=== PATIENT | female | born 1975 | race Caucasian/White ===

== ENCOUNTER 2023-06-22 18:28 | Emergency (ER) | payer BC ==
--- NOTE | 2023-06-22 18:57 | ED Physician Documentation ---
History of Present Illness - Stated complaint Stated Complaint: SEIZURE - Chief complaint Chief Complaint: General - Additonal information Additional information: 48-year-old female with history of alcohol dependence presents emergency depart ment for concerns of friends for seizure-like activity. Patient does report that she has a history of alcohol withdrawal seizures and says that what she is experienced in the car ride over was not alcohol withdrawal seizures. Patient said after she would take a puff of her vape her friends would say that she would lose consciousness her eyes would roll in the back of her head and she would have jerking-like motion and only her hands where she would get really tense. Patient had no postictal state she right now appears to be under the influence of alcohol. Patient says that she is under the influence of alcohol and drinks about 1/5 of vodka a day and has been drinking all day today. PD PAST MEDICAL HISTORY - Past Medical History Past Medical History: Yes Neuro: Seizure disorder, Other - Past Surgical History Past Surgical History: No - Allergies Allergies/Adverse Reactions: Allergies Allergy/AdvReac Type Severity Reaction Status Date / Time No Known Drug Allergies Allergy Verified 06/22/23 18:37 - Social History Does the pt smoke?: No Smoking Status: Never smoker PD ED PE NORMAL - Vitals Vital signs reviewed: Yes - General General: Alert and oriented X 3, No acute distress, Well developed/nourished - HEENT HEENT: Atraumatic, PERRL, EOMI, Ears normal, Moist mucous membranes - Cardiac Cardiac: RRR - Respiratory Respiratory: No respiratory distress, Clear bilaterally - Abdomen Abdomen: Normal bowel sounds - Derm Derm: Normal color, Warm and dry, No rash - Neuro Neuro: Alert and oriented X 3, 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, No motor deficit, No sensory deficit, Normal speech - Psych Psych: Other (Flat affect, appears under the intoxication of alcohol) Results - Vitals Vitals: Vital Signs - 24 hr 06/22/23 06/22/23 06/22/23 18:34 18:37 19:07 Temperature 36.3 C L 36.5 C Heart Rate 70 70 71 Respiratory 22 22 16 Rate Blood Pressure 100/73 100/73 141/110 H O2 Saturation 93 93 96 Oxygen O2 Source Room air - Labs Labs: Laboratory Tests 06/22/23 06/22/23 18:54 18:54 WBC 4.7 L RBC 3.95 L Hgb 12.3 Hct 37.6 MCV 95.2 MCH 31.1 H MCHC 32.7 RDW 12.2 Plt Count 208 MPV 10.6 Neut # (Auto) 2.5 Lymph # (Auto) 1.9 [place] # (Auto) 0.3 Eos # (Auto) 0.1 Baso # (Auto) 0.0 Absolute Nucleated RBC 0.00 Nucleated RBC % 0.0 Sodium 142 Potassium 3.7 Chloride 106 Carbon Dioxide 29 Anion Gap 7.0 BUN 16 Creatinine 0.6 Estimated GFR (MDRD) 106 Glucose 103 Calcium 9.3 Magnesium 1.8 Total Bilirubin 0.2 AST 18 ALT 10 Alkaline Phosphatase 79 Total Protein 6.5 Albumin 4.5 Globulin 2.0 L Albumin/Globulin Ratio 2.3 H Lipase 19 Ethyl Alcohol 332.5 PD Medical Decision Making - ED course ED course: 48-year-old female presents emergency department for concerns of her friends for seizure-like activity in the vehicle x 2. Patient was monitored here in the emergency department for over an hour and a half and I have not witnessed any of these seizure-like activity at that visit the patient's friends were describing. Her labs are complete and her EtOH level is quite elevated at 332 further confirming that patient was not having any alcohol withdrawal seizure activity. Patient does appear to be quite intoxicated she has no hypertension no tachycardia. I believe that patient is safe for discharge at this point in time back to [facility], she is medically cleared labs are complete which were unremarkable there is no further workup indicated at this point in time. Not sure with these episodes that the patient was having but I have not witnessed any of these episodes here in the emergency department. Patient is awake and alert hemodynamically stable. They were taught what alcohol withdrawal seizures look like and told when to report back to the emergency department. Departure - Departure Disposition: 01 Home, Self Care Clinical Impression: EtOH dependence Qualifiers: Substance use status: with intoxication Complication of substance-induced condition: uncomplicated Qualified Code(s): F10.220 - Alcohol dependence with intoxication, uncomplicated Instructions: ED Withdrawal Alcohol Comments: Thank you for trusting us with your care. We have checked your labs and they are unremarkable and your EtOH level is 332 given that I am confident that you are not experiencing any alcohol withdrawal seizures. If you are noticing that vaping is triggering these episodes that your friends were describing I would stop vaping. Please present back to [facility] for alcohol withdrawal. Alcohol withdrawal seizures look like convulsions, foaming at the mouth, and postictal state which is where patient is very somnolent and unable to wake up after seizure activity. Please come back to the emergency department if you are experiencing any of these. Wishing you a future free of alcohol. Forms: PCP List
[2023-06-22 19:05] LABS: BASOPHILS % (AUTO) 0.2 %; EOSINOPHILS # (AUTO) 0.1 10^3/uL (0.0-0.7); EOSINOPHILS % (AUTO) 1.9 %; HCT - HEMATOCRIT 37.6 % (37.0-47.0); HGB - HEMOGLOBIN 12.3 g/dL (12.0-16.0); LYMPHOCYTES # (AUTO) 1.9 10^3/uL (1.5-3.5); MEAN CORPUSCULAR HEMOGLOBIN 31.1 pg (27.0-31.0); MEAN CORPUSCULAR HGB CONC 32.7 g/dL (32.0-36.0); MEAN CORPUSCULAR VOLUME 95.2 fL (81.0-99.0); MEAN PLATELET VOLUME 10.6 fL (7.9-10.8); MONOCYTES # (AUTO) 0.3 10^3/uL (0.0-1.0); MONOCYTES % (AUTO) 6.5 %; NEUTROPHILS # (AUTO) 2.5 10^3/uL (1.5-6.6); NEUTROPHILS % (AUTO) 52.2 %; PLT - PLATELET COUNT 208 10^3/uL (130-450); RED BLOOD COUNT 3.95 10^6/uL (4.20-5.40); RED CELL DISTRIBUTION WIDTH 12.2 % (12.0-15.0); WHITE BLOOD COUNT 4.7 x10^3/uL (4.8-10.8)
[2023-06-22 19:12] LABS: MAGNESIUM 1.8 mg/dL (1.7-2.3)
[2023-06-22 19:18] LABS: ALBUMIN 4.5 g/dL (3.2-5.5); ALBUMIN/GLOBULIN RATIO 2.3 (1.0-2.2); BILIRUBIN,TOTAL 0.2 mg/dL (0.2-1.0); CALCIUM 9.3 mg/dL (8.5-10.3); CREATININE 0.6 mg/dL (0.6-1.3); ETOH - ETHANOL 332.5 mg/dL; POTASSIUM 3.7 mmol/L (3.5-4.5); TOTAL PROTEIN 6.5 g/dL (6.4-8.9)
[2023-06-22 19:22] VITALS: BP 141/110; O2SAT 96
== END 2023-06-22 20:14 | disposition home or self-care (01) ==
LOC: ED 18:28
DX: F10.220 Alcohol dependence with intoxication, uncomplicated (principal); Y90.8 Blood alcohol level of 240 mg/100 ml or more; G40.909 Epilepsy, unspecified, not intractable, without status epilepticus
CPT/HCPCS: 36415; 80053; 82077; 83690; 83735; 85025; 99283